=== PATIENT | female | born 1980 | race Caucasian/White ===

== ENCOUNTER 2020-05-27 11:21 | Emergency (ER) | payer OTHER, SELFPAY ==
--- NOTE | ~2020-05-27 | XR_ITS ---
EXAMINATION: XR chest 2V 05/27/2020 12:01 INDICATION: Chest pain PROCEDURE: 2 view chest COMPARISON: No prior studies for comparison. FINDINGS: The lungs are clear. The cardiomediastinal silhouette is within normal limits. There are no pleural effusions. There is no pneumothorax suspected. IMPRESSION: 1: NO ACUTE CARDIOPULMONARY DISEASE. Reviewed, dictated and finalized at location A.
--- NOTE | 2020-05-27 11:32 | ECG_ITS ---
Measurements Intervals [place] Rate: 80 P: 51 WV: 108 QRS: 69 QRSD: 102 T: 44 QT: 372 QTc: 431 Interpretive Statements SINUS RHYTHM WITH SHORT WV INTERVAL INCOMPLETE RIGHT BUNDLE BRANCH BLOCK BASELINE ARTIFACT- I, II, III, AVR, AVL, V1 BORDERLINE ECG Electronically Signed On 05-27-2020 12:19:48 CDT by Jae Ross D.O.
[2020-05-27 11:35] VITALS: BP 117/64; PULSE 87; RESP 18; TEMP 36.7; O2SAT 100
[2020-05-27 12:01] LABS: Basophils Percent Auto 0.3 % (0.2-1.2); Eosinophils Percent Auto 0.5 % (0-4.4); Hematocrit 37.5 % (37.0-47.0); Hemoglobin 12.4 g/dL (12.0-15.0); Immature Granulocyte Absolute 0.02 K/mm3 (0.00-0.031); Immature Granulocyte Percent A 0.3 % (0-0.5); Lymphocytes Absolute Auto 1.43 K/mm3 (0.9-3.2); Lymphocytes Percent Auto 24.1 % (18.3-44.2); Mean Corpuscular HGB Conc 33.1 g/dl (32-36); Mean Corpuscular Volume 93.8 fl (80-100); Mean Platelet Volume 12.4 fl (7.4-10.4); Monocytes Absolute Auto 0.6 K/mm3 (0.1-0.6); Monocytes Percent Auto 9.4 % (2.6-8.5); Neutrophils Absolute Auto 3.9 K/mm3 (1.3-6.7); Neutrophils Percent Auto 65.4 % (45.5-73.1); Platelet Count Result 119 k/mm3 (150-375); Red Cell Distribution Width 12.3 % (11.5-14.5); White Blood Count 5.9 K/mm3 (4.5-10.0)
[2020-05-27 12:13] LABS: Anion Gap 6 mmol/L (8-16); Blood Urea Nitrogen 10 mg/dL (7-17); Calcium 9.1 mg/dL (8.4-10.2); Carbon Dioxide 27 mmol/L (22-30); Chloride 105 mmol/L (98-107); Estimated CRCL calculation 101 ml/min; Estimated Glomerular Filt Rate > 60; Glucose 107 mg/dL (65-105); Partial Thromboplastin Time 27.4 SECONDS (22.3-36.8); Potassium 3.6 mmol/L (3.4-5.0); Prothrombin Time 14.1 Seconds (11.1-14.7); Sodium 138 mmol/L (137-145)
[2020-05-27 12:24] LABS: Troponin I < 0.012 ng/mL (0.000-0.034)
[2020-05-27 13:10] VITALS: BP 115/72; PULSE 72; RESP 16; O2SAT 99
--- NOTE | 2020-05-27 13:21 | ED.CHESTPAIN ---
HPI - Chest Pain General Chief Complaint: Chest Pain <Ramon Ridley PA-C - Last Filed: 05/27/20 13:27> Stated Complaint: chest tightness/sore throat <Ramon Ridley PA-C - Last Filed: 05/27/20 13:27> Time Seen by Provider: 05/27/20 12:15 <Ramon Ridley PA-C - Last Filed: 05/27/20 13:27> Source: patient <Ramon Ridley PA-C - Last Filed: 05/27/20 13:27> Mode of arrival: ambulatory <Ramon Ridley PA-C - Last Filed: 05/27/20 13:27> Limitations: no limitations <Ramon Ridley PA-C - Last Filed: 05/27/20 13:27> History of Present Illness HPI narrative: Patient is a 40-year-old female who presents to emergency department for evaluation of chest pain localized to the right chest wall that began yesterday wraparound to the upper back patient notes now she currently has no pain states that the pain is been coming and going denies injury trauma illness or other complaints has not taken anything for her symptoms presents per private vehicle in no distress <Ramon Ridley PA-C - Last Filed: 05/27/20 13:27> Related Data Allergies/Adverse Reactions: Allergies Allergy/AdvReac Type Severity Reaction Status Date / Time No Known Allergies Allergy Unverified 11/12/17 12:58 <Ramon Ridley PA-C - Last Filed: 05/27/20 13:27> Review of Systems Review of Systems: All systems reviewed & are unremarkable except as noted in HPI and below <Ramon Ridley PA-C - Last Filed: 05/27/20 13:27> [facility] Social History Social History: Social History (Updated 05/27/20 @ 13:23 by Ramon Ridley PA-C) Smoking status: Current every day smoker Gender identity (if verbalized by the patient): Female <MAXIMO Jhaveri Last Filed: 05/27/20 13:27> Course Vital Signs Vital signs: Vital Signs Temperature 98.1 F 05/27/20 11:35 Pulse Rate 87 05/27/20 11:35 Respiratory Rate 18 05/27/20 11:35 Blood Pressure 117/64 05/27/20 11:35 Pulse Oximetry 100 05/27/20 11:35 Temperature 98.1 F 05/27/20 11:35 Pulse Rate 72 05/27/20 13:10 Respiratory Rate 16 05/27/20 13:10 Blood Pressure 115/72 05/27/20 13:10 Pulse Oximetry 99 05/27/20 13:10 <Ramon Ridley PA-C - Last Filed: 05/27/20 13:27> Vital Signs Temperature 98.1 F 05/27/20 11:35 Pulse Rate 87 05/27/20 11:35 Respiratory Rate 18 05/27/20 11:35 Blood Pressure 117/64 05/27/20 11:35 Pulse Oximetry 100 05/27/20 11:35 Temperature 98.1 F 05/27/20 11:35 Pulse Rate 72 05/27/20 13:10 Respiratory Rate 16 05/27/20 13:10 Blood Pressure 115/72 05/27/20 13:10 Pulse Oximetry 99 05/27/20 13:10 <Roxi Jorge MD - Last Filed: 05/27/20 18:15> MDM - Chest Pain MDM Narrative Medical decision making narrative: Patients EKGs and labs are without significant high risk changes. Cardiac risk factors were reviewed. Patient is felt likely to be low risk for ACS and reasonable for further risk stratification testing as an outpatient. Pain was not sudden or maximal in onset without tearing or ripping. quality. No other signs or symptoms to suggest aortic dissection. A low-risk Wells criteria is noted. PE is felt to be unlikely. No pneumonia or URI symptoms were seen on evaluation today. Patient is felt to b reasonable for continued evaluation as an outpatient. <Ramon Ridley PA-C - Last Filed: 05/27/20 13:27> Lab Data Result diagrams: : 05/27/20 11:41 05/27/20 11:41 <Ramon Ridley PA-C - Last Filed: 05/27/20 13:27> Labs: Lab Results 05/27/20 05/27/20 05/27/20 Range/Units 11:41 11:41 11:41 WBC 5.9 (4.5-10.0) K/mm3 RBC 4.00 L (4.2-5.4) M/mm3 Hgb 12.4 (12.0-15.0) g/dL Hct 37.5 (37.0-47.0) % MCV 93.8 (80-100) fl MCH 31.0 (26-34) pg MCHC 33.1 (32-36) g/dl RDW 12.3 (11.5-14.5) % Plt Count 119 L (150-375) k/mm3 MPV 12.4 H (7.4-10.4) fl Immatu
== END 2020-05-27 13:40 | disposition home or self-care (01) ==
PROVIDERS: Emergency Medicine; Emergency Provider General Practice; PCP Family Medicine
DX: R07.89 Other chest pain (principal); F17.200 Nicotine dependence, unspecified, uncomplicated; I45.10 Unspecified right bundle-branch block
CPT/HCPCS: 36415; 71046; 80048; 84484; 85025; 85610; 85730; 93005; 99284

== ENCOUNTER 2020-06-28 18:50 | Emergency (ER) | payer OTHER, SELFPAY ==
[2020-06-28 18:56] VITALS: BP 147/74; PULSE 87; RESP 16; TEMP 37.1; O2SAT 100
--- NOTE | 2020-06-28 19:04 | ED.SKABFB ---
HPI - Skin/Abscess/Foreign Bdy General Chief complaint: Skin/Abscess/Foreign Body Stated complaint: right leg sore Time Seen by Provider: 06/28/20 19:04 Source: patient and RN notes reviewed Mode of arrival: ambulatory Limitations: no limitations History of Present Illness HPI narrative: 40-year-old female presents to the [facility] with complaints of a sore that has been on her right lower leg for several weeks. Thought it was ringworm or a fungus and has been using [id number]-[id number] fungal cream without improvement. Mildly raised, dry, patchy and flaky area 2 cm in diameter. Related Data Allergies Allergy/AdvReac Type Severity Reaction Status Date / Time No Known Allergies Allergy Unverified 11/12/17 12:58 Review of Systems Review of Systems: Narrative: CONSTITUTIONAL: Denies fever, chills, or sweats. CARDIOVASCULAR: Denies chest pain, palpitations, or edema. RESPIRATORY: Denies cough or dyspnea. SKIN: Denies rash or itching. dry area right lower lateral leg MUSCULOSKELETAL: Denies back pain, joint pain, or myalgia. NEUROLOGIC: Denies headache, numbness, or weakness. PSYCHIATRIC: Denies anxiety or depression. All other systems reviewed are negative, except as documented in HPI. [facility] Social History Social History Smoking status: Current every day smoker Gender identity (if verbalized by the patient): Female Comments At the time of my signature, I reviewed and agree with the nursing past medical, surgical, social, and family history. There is no relevant family history pertinent to the patient complaint. Exam Narrative: Exam Narrative: GENERAL: This is a well-nourished, well-developed patient, in no apparent distress. HEAD: normocephalic, atraumatic. CARDIOVASCULAR: Regular rate and rhythm without murmurs, gallops, or rubs. RESPIRATORY: Clear to auscultation. Breath sounds equal bilaterally. No wheezes, rales, or rhonchi. SKIN: warm, Dry, intact with no suspicious lesions or rash, good texture and turgor. 2 cm circular slightly raised dry patchy, flaky area with minimal clear drainage noted. NEURO: awake, alert, and oriented to person, place and time. There were no obvious focal neurologic abnormalities. EXTREMITIES: No joint tenderness, effusion, or edema noted. No calf tenderness. Negative Homans sign bilaterally. BACK: Nontender without deformity. Course Vital Signs Vital signs: Vital Signs Temperature 98.8 F 06/28/20 18:56 Pulse Rate 87 06/28/20 18:56 Respiratory Rate 16 06/28/20 18:56 Blood Pressure 147/74 H 06/28/20 18:56 Pulse Oximetry 100 06/28/20 18:56 Temperature 98.8 F 06/28/20 18:56 Pulse Rate 87 06/28/20 18:56 Respiratory Rate 16 06/28/20 18:56 Blood Pressure 147/74 H 06/28/20 18:56 Pulse Oximetry 100 06/28/20 18:56 Reviewed MDM - Skin/Abscess/Foreign Bdy MDM Narrative Medical decision making narrative: Discharge instructions reviewed with patient, as well as provided in writing per nursing staff. The instructions also include specific and strict return/GO TO THE ER as well as f/u information. All questions have been answered, and the patient deny any further questions with discharge and discharge plan. Differential Diagnosis Differential diagnosis: Likely abscess of skin or subcutaneous tissue, cellulitis, impetigo, contact dermatitis and other (Ringworm, skin cancer) Critical Care Time Critical Care Time Critical Care Time: No Discharge Plan Discharge Clinical Impression: Leg skin lesion, right Patient Disposition: Home, Self-Care Condition: Stable Instructions: Antibiotic Form, Acute Wounds (ED) Additional Instructions: Apply cream twice a day. Be sure to follow-up with primary care provider If no improvement follow-up with your resident assistant cna. Prescriptions: New nystatin-triamcinolone 100,000-0.1 unit/g-% cream 1 applic topical BID Qty: 15 RF: 0 Follow-up/Referrals: [facility]
== END 2020-06-28 19:20 | disposition home or self-care (01) ==
PROVIDERS: Emergency Provider Nurse Practitioner; PCP Family Medicine
DX: L98.9 Disorder of the skin and subcutaneous tissue, unspecified (principal); F17.200 Nicotine dependence, unspecified, uncomplicated
CPT/HCPCS: 99213; G0463

== ENCOUNTER 2021-01-13 08:07 | Emergency (ER) | payer BC, SELFPAY ==
[2021-01-13 08:16] VITALS: BP 116/72; PULSE 81; RESP 18; TEMP 37.1; O2SAT 100
--- NOTE | 2021-01-13 08:28 | ED.GENADULT ---
HPI - General Adult General Chief complaint: Upper Respiratory Infection Stated complaint: Sore Throat Time Seen by Provider: 01/13/21 08:09 Source: patient Mode of arrival: ambulatory Limitations: no limitations History of Present Illness HPI narrative: 40 y/o female. PMHx None reported. Presents to [facility] today with acute complaints of sore throat for the past 24 hours. Client reports seeing spots in the back of her throat . No fever, chills. No cough, congestion, chest pain, dyspnea. No dysphagia, involuntary drooling. Pt denies known ill contacts or Covid 19 exposure. No additional acute c/o illness upon PE. Related Data Allergies Allergy/AdvReac Type Severity Reaction Status Date / Time No Known Allergies Allergy Unverified 11/12/17 12:58 Review of Systems Review of Systems: CONSTITUTIONAL: Denies fever, chills, sweats. EYES: Denies visual changes, redness, discharge. ENT: Denies rhinorrhea, congestion, otalgia. Positive sore throat. CARDIOVASCULAR: Denies chest pain, palpitations, edema. RESPIRATORY: Denies dyspnea, wheezing, cough GASTROINTESTINAL: Denies abdominal pain, nausea, vomiting, diarrhea. GENITOURINARY: Denies dysuria, hematuria, abnormal discharge SKIN: Denies rash or itching. MUSCULOSKELETAL: Denies acute back pain, joint pain, or myalgia. NEUROLOGIC: Denies numbness, or focal weakness. PSYCHIATRIC: Denies anxiety or depression. All systems reviewed & are unremarkable except as noted in HPI and below PMFSH Social History Social History Smoking status: Current every day smoker Gender identity (if verbalized by the patient): Female Exam Narrative: GENERAL: This is a well-nourished, well-developed adult, in no apparent distress. HEAD: normocephalic, atraumatic. EYES: PERRL. Sclera clear/white. EARS: External ears normal, auditory canals clear and without drainage, TMs normal. NOSE: External nose normal. Positive Rhinorrhea, no obstruction, nares patent. THROAT: Mucous membranes moist. Posterior pharynx is erythematous w/mild exudative changes. No obstruction or stridor. NECK: Neck supple, non-tender without lymphadenopathy, masses or thyromegaly. CARDIOVASCULAR: Regular rate and rhythm without murmurs, gallops, or rubs. RESPIRATORY: Clear to auscultation. Breath sounds equal bilaterally. No wheezes, rales, or rhonchi. GASTROINTESTINAL: Abdomen soft, non-tender, nondistended. Bowel sounds are active. No guarding. SKIN: warm, intact with no suspicious lesions or rash, good texture and turgor. NEURO: Alert, active, and age appropriate. No focal neurologic deficits. Medical Decision Making MDM Narrative Medical decision making narrative: -Rapid strep negative, will send for Cx. -Cover w/Amoxicillin based upon PE findings and fact that rapid testing may sometimes yield false negative, especially in early Dx processes. -No respiratory distress, appears non-toxic. -PCP F/U 1 WK. -ER W/Emergent health status changes. Pt agrees. Differential Diagnosis Differential Diagnosis: Differential Diagnosis: Consideration of the following conditions may be warranted for the presenting problem, they are not final diagnoses: upper respiratory infection, otitis media, sinusitis, RSV viral infection, bronchitis, pharyngitis, Streptococcal sore throat, COVID-19, and other. Medical Records Medical records reviewed: Yes I reviewed the external patient's medical records. Lab Data Lab results reviewed: Yes I reviewed the patient's lab results. Critical Care Time Critical Care Time Critical Care Time: No Discharge Plan Discharge Clinical Impression: Pharyngitis Qualifiers: Pharyngitis/tonsillitis etiology: unspecified etiology Qualified Code(s): J02.9 - Acute pharyngitis, unspecified Patient Disposition: Home, Self-Care Condition: Stable Instructions: Antibiotic Form, Pharyngitis (ED) Prescriptions: New alecia
== END 2021-01-13 08:43 | disposition home or self-care (01) ==
PROVIDERS: Emergency Provider Nurse Practitioner Adult Health; PCP Family Medicine
DX: J02.9 Acute pharyngitis, unspecified (principal); F17.200 Nicotine dependence, unspecified, uncomplicated
CPT/HCPCS: 87081; 87880; 99213; G0463

== ENCOUNTER 2021-01-29 09:56 | Emergency (ER) | payer BC, SELFPAY ==
--- NOTE | 2021-01-29 09:58 | ED.URI ---
HPI - URI/Sore Throat General Chief Complaint: Upper Respiratory Infection Stated Complaint: sore throat Time Seen by Provider: 01/29/21 09:58 Source: patient and RN notes reviewed History of Present Illness HPI Narrative: Patient with is a 41-year-old female who presents the urgent care with complaints of white spots on the throat . Patient was treated for strep on 13 January and the culture was negative. Patient states that she did complete the antibiotics at that time. Patient denies of any recent fever, nausea vomiting. Patient states that her throat is not sore she just wants to make sure she is okay to participate in [employer] . No other acute complaints. No acute distress noted. Patient read the plan of care. Some parts of this dictation were generated by voice recognition software and may contain typographical and/or grammatical inaccuracies. Related Data Home Medications Medication Instructions Recorded Confirmed No Home Medications 01/29/21 01/29/21 Allergies Allergy/AdvReac Type Severity Reaction Status Date / Time No Known Allergies Allergy Unverified 11/12/17 12:58 Review of Systems Review of Systems: CONSTITUTIONAL: Denies fever, chills, or sweats. EYES: Denies visual changes, redness, or discharge. ENT: Denies rhinorrhea, congestion, sore throat, or otalgia. Reports of white spots on the throat CARDIOVASCULAR: Denies chest pain, palpitations, or edema. RESPIRATORY: Denies cough or dyspnea. GASTROINTESTINAL: Denies abdominal pain, nausea, vomiting, or diarrhea. GENITOURINARY: Denies dysuria or hematuria. SKIN: Denies rash or itching. MUSCULOSKELETAL: Denies back pain, joint pain, or myalgia. NEUROLOGIC: Denies headache, numbness, or weakness. All other systems reviewed are negative, except as documented in HPI. PMFSH Social History Social History Smoking status: Current every day smoker Gender identity (if verbalized by the patient): Female Comments At the time of my signature, I reviewed and agree with the nursing past medical, surgical, social, and family history. There is no relevant family history pertinent to the patient complaint. Exam Narrative: GENERAL: This is a well-nourished, well-developed patient, in no apparent distress. HEAD: normocephalic, atraumatic. EYES: PERRL. Sclera clear/white. Vision is grossly intact. EARS: External ears normal, auditory canals clear and without drainage, TMs normal without perforation. Hearing grossly intact. NOSE: External nose normal with no obvious nasal discharge, nares without redness, no rhinorrhea. THROAT: Mucous membranes moist, posterior pharynx clear. Mild exudate noted to the left tonsil with moderate postnasal drainage NECK: Neck supple CARDIOVASCULAR: Regular rate and rhythm without murmurs, gallops, or rubs. RESPIRATORY: Clear to auscultation. Breath sounds equal bilaterally. No wheezes, rales, or rhonchi. SKIN: warm, intact with no suspicious lesions or rash, good texture and turgor. NEURO: awake, alert, and oriented to person, place and time. There were no obvious focal neurologic abnormalities. EXTREMITIES: No clubbing, cyanosis, or edema. Course Vital Signs Vital signs: Vital Signs Temperature 99.6 F 01/29/21 10:01 Pulse Rate 80 01/29/21 10:01 Respiratory Rate 18 01/29/21 10:01 Blood Pressure 106/61 01/29/21 10:01 Pulse Oximetry 100 01/29/21 10:01 Temperature 99.6 F 01/29/21 10:01 Pulse Rate 80 01/29/21 10:01 Respiratory Rate 18 01/29/21 10:01 Blood Pressure 106/61 01/29/21 10:01 Pulse Oximetry 100 01/29/21 10:01 Reviewed MDM - URI/Sore Throat MDM Narrative Medical decision making narrative: Reviewed lab results with the patient. She is aware that strep swab was negative. Advised the patient to use an hsho-[id number] antihistamine such as Claritin/Zyrtec/Benadryl as needed for symptom relief. If you develop any increase i
[2021-01-29 10:01] VITALS: BP 106/61; PULSE 80; RESP 18; TEMP 37.6; O2SAT 100
== END 2021-01-29 10:30 | disposition home or self-care (01) ==
PROVIDERS: Emergency Provider Nurse Practitioner Family; PCP Family Medicine
DX: J02.9 Acute pharyngitis, unspecified (principal); F17.210 Nicotine dependence, cigarettes, uncomplicated
CPT/HCPCS: 87081; 87880; 99213; G0463

== ENCOUNTER 2022-07-01 13:35 | Emergency (ER) | payer OTHER, SELFPAY ==
[2022-07-01 13:57] VITALS: BP 133/61; PULSE 78; RESP 20; TEMP 36.6; O2SAT 100
--- NOTE | 2022-07-01 14:40 | ED.URI ---
HPI - URI/Sore Throat General Chief Complaint: Upper Respiratory Infection Stated Complaint: cold flu Time Seen by Provider: 07/01/22 14:40 Source: patient and RN notes reviewed Mode of arrival: ambulatory Limitations: no limitations History of Present Illness HPI Narrative: 42-year-old female presented for complaint of not feeling well, onset yesterday. Endorses headache, subjective fever and chills, mild nausea. She states she felt worse this morning upon awakening. Took ibuprofen for symptoms. Endorses or and was sick with similar symptoms recently. Denies shortness of breath, wheezing, vomiting. MD elicited complaint: cough Related Data Home Medications Medication Instructions Recorded Confirmed Lactobacillus 1 cap PO DAILY 07/01/22 07/01/22 acidophilus-Bifidobac.animalis 10 billion cell capsule (Digestive Probiotic) ascorbic acid (vitamin C) 1,000 mg 1 g PO DAILY 07/01/22 07/01/22 tablet vit no.95-ferrous 1 tablet PO DAILY 07/01/22 07/01/22 fumarate 28 mg-folic acid 800 mcg tablet () Allergies Allergy/AdvReac Type Severity Reaction Status Date / Time No Known Allergies Allergy Verified 07/01/22 14:03 Review of Systems Review of Systems: CONSTITUTIONAL: Endorses malaise, chills, sweats, fever EYES: Denies visual changes, redness, or discharge ENT: Denies rhinorrhea, congestion, sinus pain, otalgia, sore throat CARDIOVASCULAR: Denies chest pain, palpitations, edema RESPIRATORY: Denies dyspnea GASTROINTESTINAL: Denies abdominal pain, nausea, vomiting, diarrhea SKIN: Denies rash or itching MUSCULOSKELETAL: Endorses myalgia NEUROLOGIC: Endorses headache PMFSH Past Medical History Medical History (Updated 07/01/22 @ 14:48 by Abby Devlin APRN) No pertinent past medical history Social History Social History Smoking status: Current every day smoker Gender identity (if verbalized by the patient): Female Exam Narrative: GENERAL: Mildly Ill-appearing, nontoxic no acute distress. HEAD: Normocephalic EYES: PERRLA, conjunctivae clear ENT: Mucous membranes moist. TMs pearly perez with dull light reflex bilaterally; no tragal tenderness. Oropharynx without lesions or exudate, no drooling, no hoarseness, no trismus, uvula midline. No tripod positioning, muffled voice, soft palate or pharyngeal wall bulging NECK: Supple. No lymphadenopathy CHEST: Clear to auscultation, breath sounds equal. No wheezing, rhonchi, rales, or stridor. No respiratory distress, speaks in full sentences. HEART: Regular rate and rhythm. No murmur heard. SKIN: Warm, dry, no rash. NEURO: Alert and oriented x3. PSYCH: Normal mood and affect Course Course Emergency Course: Patient is aware of diagnosis, understands and agrees to treatment plan. Anticipatory guidance given. Patient agrees to follow-up as directed and is aware of reasons to seek care at the emergency department. Portions of this record may have been created with voice recognition software Level of Care: Express Care Visit Vital Signs Vital signs: Vital Signs Temperature 97.9 F 07/01/22 13:57 Pulse Rate 78 07/01/22 13:57 Respiratory Rate 20 07/01/22 13:57 Blood Pressure 133/61 07/01/22 13:57 Pulse Oximetry 100 07/01/22 13:57 Oxygen Delivery Room Air 07/01/22 13:57 Temperature 97.9 F 07/01/22 13:57 Pulse Rate 78 07/01/22 13:57 Respiratory Rate 20 07/01/22 13:57 Blood Pressure 133/61 07/01/22 13:57 Pulse Oximetry 100 07/01/22 13:57 Oxygen Delivery Room Air 07/01/22 13:57 reviewed MDM - URI/Sore Throat MDM Narrative Medical decision making narrative: Discussed physical exam findings. Advised supportive measures and signs/symptoms to go to the ER. Pt is appropriate for outpt treatment and f/u. Differential Diagnosis Differential diagnosis: Likely upper respiratory infection, sinusitis and daria
== END 2022-07-01 14:50 | disposition home or self-care (01) ==
PROVIDERS: Emergency Provider Nurse Practitioner Family; PCP Family Medicine
DX: B34.9 Viral infection, unspecified (principal); F17.200 Nicotine dependence, unspecified, uncomplicated
CPT/HCPCS: 99211; G0463

== ENCOUNTER 2023-02-18 14:06 | Emergency (ER) | payer OTHER, SELFPAY ==
[2023-02-18 14:20] VITALS: BP 120/71; PULSE 85; RESP 16; TEMP 37.3; O2SAT 98
--- NOTE | 2023-02-18 14:54 | ED.GENADULT ---
HPI - General Adult General Chief complaint: Nausea/Vomiting/Diarrhea Stated complaint: Vomiting Time Seen by Provider: 02/18/23 14:55 Source: patient, RN notes reviewed and old records reviewed Mode of arrival: ambulatory Limitations: no limitations History of Present Illness HPI narrative: 43-year-old female presents to the [facility] with complaints of vomiting that started at 3:00 a.m. this morning. Was at a [place] [employer] last night thinks she ate something bad. Stop vomiting prior to arrival. Is able to drink small sips of water. Denies abdominal pain, chest pain, no CVA tenderness. Denies fevers no concerns for urinary symptoms. Onset (ago): hour(s) (12) Related Data Home Medications Medication Instructions Recorded Confirmed Lactobacillus 1 cap PO DAILY 07/01/22 07/01/22 acidophilus-Bifidobac.animalis 10 billion cell capsule (Digestive Probiotic) ascorbic acid (vitamin C) 1,000 mg 1 g PO DAILY 07/01/22 07/01/22 tablet vit no.95-ferrous 1 tablet PO DAILY 07/01/22 07/01/22 fumarate 28 mg-folic acid 800 mcg tablet () Allergies Allergy/AdvReac Type Severity Reaction Status Date / Time No Known Allergies Allergy Verified 02/18/23 14:30 Review of Systems Review of Systems: All systems reviewed & are unremarkable except as noted in HPI and below Constitutional: Constitutional: Reports no additional constitutional complaints Eyes: Eyes: Reports no additional eye complaints ENT: Reports system reviewed and no additional complaints, except as documented Cardiovascular: Cardiovascular: Reports no additional cardiovascular complaints, Denies chest pain and Denies dyspnea Respiratory: Respiratory: Reports no additional respiratory complaints, Denies chest congestion, Denies cough and Denies dyspnea Gastrointestinal: Gastrointestinal: Reports as per HPI, Reports no additional gastrointestinal complaints, Denies abdominal pain, Denies diarrhea, Reports nausea and Reports vomiting Musculoskeletal: Musculoskeletal: Reports no additional musculoskeletal complaints Integumentary/Breasts: Skin/Breast: Reports system reviewed and no additional complaints, except as docu Neurologic: Reports system reviewed and no additional complaints, except as documented Psychiatric: Psychiatric: Reports no additional psychiatric complaints Allergic/Immunologic: Allergic/Immunologic: Reports no additional allergic/immunologic complaints PMFSH Past Medical History Medical History No pertinent past medical history Social History Social History Smoking status: Current every day smoker Gender identity (if verbalized by the patient): Female Comments At the time of my signature, I reviewed and agree with the nursing past medical, surgical, social, and family history. There is no relevant family history pertinent to the patient complaint. Exam Const: General: cooperative, healthy appearing, comfortable, no acute distress, well developed, alert and well nourished Nutritional Appearance: well nourished Orientation/consciousness: patient oriented x3 Limitations: no limitations HENMT: Head: normal to inspection Ears: hearing grossly normal bilaterally, external ears normal, TM's normal bilaterally, EAC's normal, mastoids normal and no periauricular adenopathy Face/Nose/Sinus: Normal external nose present, Normal nares present, Normal nasal mucous membranes and turbinates present, normal facial exam and face symmetric Face and sinus: normal facial exam and face symmetric Mouth: Yes Normal oral and palatal mucosa present, Yes lip normal and Yes moist mucous membranes Throat: posterior oropharynx normal and uvula midline Eyes: General: appearance normal, both eyes and all related structures Alignment and Position: alignment normal Periorbital: periorbital findings normal Pupils: Eq
== END 2023-02-18 15:10 | disposition home or self-care (01) ==
PROVIDERS: Emergency Provider Nurse Practitioner; PCP Family Medicine
DX: R11.2 Nausea with vomiting, unspecified (principal); F17.200 Nicotine dependence, unspecified, uncomplicated
CPT/HCPCS: 99213; G0463

== ENCOUNTER 2023-04-30 09:57 | Emergency (ER) | payer OTHER, SELFPAY ==
[2023-04-30 10:02] VITALS: BP 134/87; PULSE 97; RESP 16; TEMP 36.8; O2SAT 99
[2023-04-30 10:06] VITALS: BP 134/87; PULSE 97; RESP 16; TEMP 36.8; O2SAT 99
--- NOTE | 2023-04-30 10:08 | ED.NAVMDI ---
HPI - Nausea/Vomiting/Diarrhea General Chief complaint: Nausea/Vomiting/Diarrhea Stated complaint: had the flu, needs note for work Time Seen by Provider: 04/30/23 10:08 Source: patient Mode of arrival: ambulatory Limitations: no limitations History of Present Illness HPI Narrative: 43 yo F presents for work note. Pt states that past two days she was at home with N/v/d and fatigue. Thinks she had fever but never checked. Vomited for only one day. Yesterday was still having diarhea, no appetite but able to keep down sprite. Today fatigue and trying to drink water. Needs note to return to work Wednesday. No ABD pain. No urinary symptoms. All systems reviewed and negative except as noted above. Related Data Home Medications Medication Instructions Recorded Confirmed progesterone micronized 200 mg 200 mg vaginal HS 04/30/23 04/30/23 capsule Allergies Allergy/AdvReac Type Severity Reaction Status Date / Time No Known Allergies Allergy Verified 04/30/23 10:05 Review of Systems Review of Systems: CONSTITUTIONAL: Denies fever, chills, or sweats. Reports fatigue. EYES: Denies visual changes, redness, or discharge. ENT: Denies rhinorrhea, congestion, sore throat, or otalgia. CARDIOVASCULAR: Denies chest pain, palpitations, or edema. RESPIRATORY: Denies cough or dyspnea. GASTROINTESTINAL: Denies abdominal pain. Reports nausea, vomiting, or diarrhea. GENITOURINARY: Denies dysuria or hematuria. SKIN: Denies rash or itching. MUSCULOSKELETAL: Denies back pain, joint pain, or myalgia. NEUROLOGIC: Denies headache, numbness, or weakness. PSYCHIATRIC: Denies anxiety or depression. All other systems reviewed are negative, except as documented in HPI. PMFSH Past Medical History Medical History No pertinent past medical history Social History Social History Smoking status: Current every day smoker Gender identity (if verbalized by the patient): Female Comments At time of signature, agree with nursing past medical, surgical, social and family history. There is no relevant family history pertinent to the presenting complaint. Exam Narrative: GENERAL: This is a well-nourished, well-developed patient, in no apparent distress. HEAD: normocephalic, atraumatic. EYES: PERRL. Sclera clear/white. Vision is grossly intact. EARS: External ears normal NOSE: External nose normal NECK: Neck supple, non-tender without lymphadenopathy, masses or thyromegaly. CARDIOVASCULAR: Regular rate and rhythm without murmurs, gallops, or rubs. RESPIRATORY: Clear to auscultation. Breath sounds equal bilaterally. No wheezes, rales, or rhonchi. GASTROINTESTINAL: Abdomen soft, non-tender, nondistended. Bowel sounds are active. No hepato-splenomegaly, or palpable masses. No guarding. SKIN: warm, Dry, intact with no suspicious lesions or rash, good texture and turgor. NEURO: awake, alert, and oriented to person, place and time. There were no obvious focal neurologic abnormalities. EXTREMITIES: No joint tenderness, effusion, or edema noted. Course Course Level of Care: Express Care Visit Vital Signs Vital signs: Vital Signs Temperature 36.8 C 04/30/23 10:02 Pulse Rate 97 04/30/23 10:02 Respiratory Rate 16 04/30/23 10:02 Blood Pressure 134/87 04/30/23 10:02 Pulse Oximetry 99 04/30/23 10:02 Oxygen Delivery Room Air 04/30/23 10:02 Temperature 36.8 C 04/30/23 10:06 Pulse Rate 97 04/30/23 10:06 Respiratory Rate 16 04/30/23 10:06 Blood Pressure 134/87 04/30/23 10:06 Pulse Oximetry 99 04/30/23 10:06 Oxygen Delivery Room Air 04/30/23 10:06 Reviewed MDM - Nausea/Vomiting/Diarrhea MDM Narrative Medical decision making narrative: Patient is aware of diagnosis, understands and agrees to treatment plan. Anticipatory guidance given. Patient agrees to follow-up as directed and is aware of jenny
== END 2023-04-30 10:18 | disposition home or self-care (01) ==
PROVIDERS: Emergency Provider Nurse Practitioner Family; PCP Family Medicine
DX: A08.4 Viral intestinal infection, unspecified (principal); F17.200 Nicotine dependence, unspecified, uncomplicated
CPT/HCPCS: 99211; G0463